=== PATIENT | female | born 1975 | race Caucasian/White ===

== ENCOUNTER 2016-05-10 18:33 | Emergency (ER) | payer BC ==
[~2016-05-10] VITALS: Ht 165.1 cm; Wt 81.0 kg
[2016-05-10 19:16] VITALS: TEMP 36.8; Ht 165.1 cm; Wt 81.0 kg
[2016-05-10 19:48] VITALS: O2SAT 98
[2016-05-10 20:05] LABS: BASO % 0.3 %; BASO ABS # 0.03 K/uL (0-0.2); COMPLETE YES; EOS % 2.1 %; HEMATOCRIT 39.7 % (37-47); IG% 0.1 %; LYMPH % 31.4 %; LYMPH ABS # 2.81 K/uL (1.2-3.4); MEAN CELL VOLUME 90.8 fL (80-100); MEAN CORPUSCULAR HEMOGLOBIN 31.6 pg (25-34); MEAN CORPUSCULAR HGB CONC 34.8 g/dl (32-36); MEAN PLATELET VOLUME 9.5 fL (7.4-10.4); MONO % 5.9 %; NEUT % 60.2 %; PLATELET COUNT 243 K/uL (130-400); RED BLOOD COUNT 4.37 M/uL (4.2-5.4); WHITE BLOOD COUNT 8.94 K/uL (4.8-10.8)
[2016-05-10 20:16] LABS: PARTIAL THROMBOPLASTIN RATIO 1.2; PROTHROMBIN TIME (PATIENT) 10.2 SECONDS (9.0-12.0)
--- NOTE | 2016-05-10 20:18 | DIAGNOSTIC IMAGING REPORT ---
CHEST 2 VIEWS ROUTINE CLINICAL HISTORY: Shortness of breath. Palpitations. COMPARISON STUDY: No previous studies for comparison. FINDINGS: Lung volumes are normal. There is no pneumothorax or pleural effusion. Pulmonary vascularity is normal. Cardiac size is normal. Mediastinal contours are normal. No consolidation is identified. IMPRESSION: No acute cardiopulmonary findings. Electronically signed by: Claudio Tony M.D. 05/10/2016 8:17 PM Dictated Date/Time: 05/10/2016 8:17 PM
[2016-05-10 20:25] LABS: BUN/CREATININE RATIO 12.1 (10-20); CALCIUM 9.1 mg/dl (8.5-10.1); CREATININE 0.75 mg/dl (0.60-1.20); MAGNESIUM 2.4 mg/dl (1.8-2.4); POTASSIUM 3.4 mmol/L (3.5-5.1)
[2016-05-10 20:34] LABS: THYROID STIMULATING HORMONE 3.12 uIu/ml (0.300-4.500)
[2016-05-10] MEDS ORDERED: POTASSIUM CHLORIDE 10 MEQ TABCR PO STA (20:47)
[2016-05-10 21:03] VITALS: BP 118/77; PULSE 90; O2SAT 98
--- NOTE | 2016-05-11 00:10 | EMERGENCY ROOM VISIT NOTE ---
History Report prepared by Honorioibсветлана: Jasmina Murphy Under the Supervision of: Dr. Nirav Encarnacion M.D. First contact with patient: 19:27 Chief Complaint: CARDIAC ASSESSMENT Stated Complaint: HEART PALPITATIONS History of Present Illness The patient is a 40 year old female who presents to the Emergency Room with complaints of constant palpations occurring 2 hours prior to arrival. The patient states that she was driving home from work when the palpations began. She notes she has had some chest heaviness, but denies any chest pain. The patient does drink about 60oz of caffeine everyday typically in the form of soda. She denies fevers, vomiting, diarrhea or abdominal pain. The patient also denies a family history of heart disease, control use, recent long trips, or any known medical problems. She is a non smoker. 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 A total of 10 systems reviewed and were otherwise negative. Past Medical & Surgical Surgical Problems: (1) S/P tubal ligation Family History Patient reports no known family medical history. Social History Smoking Status: Never Smoker Smokeless Tobacco Use: No Alcohol Use: occasionally Housing Status: lives with family Occupation Status: employed Allergies Coded Allergies: No Known Allergies (Verified , 03/22/02) Physical Exam Vital Signs Date Time Temp Pulse Resp B/P Pulse Ox O2 Delivery O2 Flow Rate FiO2 05/10/16 21:03 90 16 118/77 98 Room Air 05/10/16 19:48 98 Room Air 05/10/16 19:47 73 05/10/16 19:20 97 Room Air 05/10/16 19:16 36.8 53 18 123/71 98 Room Air Physical Exam Constitutional: Vital signs reviewed. Eyes: Pupils are equal round reactive to light. Conjunctiva are noninjected. ENT: Pharynx is clear without erythema or exudate. Mucous membranes are moist. Neck supple without meningeal signs. Respiratory: Clear to auscultation bilaterally. Breath sounds are equal bilaterally. Cardiovascular: Extrasystole after every heartbeat. No murmurs, rubs or gallops. GI: Soft, nondistended and nontender. Bowel sounds are present. Musculoskeletal: No peripheral edema. No lower extremity tenderness. Integumentary: No cyanosis. Neurological: The patient is awake and alert. No focal deficits. Psychiatric: Normal affect. Medical Decision & Procedures ER Provider Diagnostic Interpretation: X-ray results as stated below per interpretation by me and the radiologist: CHEST 2 VIEWS ROUTINE CLINICAL HISTORY: Shortness of breath. Palpitations. COMPARISON STUDY: No previous studies for comparison. FINDINGS: Lung volumes are normal. There is no pneumothorax or pleural effusion. Pulmonary vascularity is normal. Cardiac size is normal. Mediastinal contours are normal. No consolidation is identified. IMPRESSION: No acute cardiopulmonary findings. Electronically signed by: Claudio Tony M.D. 05/10/2016 8:17 PM Dictated Date/Time: 05/10/2016 8:17 PM Laboratory Results 05/10/16 19:55 Red Blood Count 4.37, Mean Corpuscular Volume 90.8, Mean Corpuscular Hemoglobin 31.6, Mean Corpuscular Hemoglobin Concent 34.8, Mean Platelet Volume 9.5, Neutrophils (%) (Auto) 60.2, Lymphocytes (%) (Auto) 31.4, Monocytes (%) (Auto) 5.9, Eosinophils (%) (Auto) 2.1, Basophils (%) (Auto) 0.3, Neutrophils # (Auto) 5.37, Lymphocytes # (Auto) 2.81, Monocytes # (Auto) 0.53, Eosinophils # (Auto) 0.19, Basophils # (Auto) 0.03 05/10/16 19:55 Test 05/10/16 19:40 05/10/16 19:55 05/10/16 19:58 Urine Test NEG (NEG) White Blood Count 8.94 K/uL (4.8-10.8) Red Blood Count 4.37 M/uL (4.2-5.4) Hemoglobin 13.8 g/dL (12.0-16.0) Hematocrit 39.7 % (37-47) Mean Corpuscular Volume 90.8 fL (80-100) Mean Corpuscular Hemoglobin 31.6 pg (25-34) Mean Corpuscular Hemoglobin Concent 34.8 g/dl (32-36) Platelet Count 243 K/uL (130-400) Mean Platelet Volume 9.5 fL (7.4-10.4) Neutrophils (%) (Auto) 60.2 % Lymphocytes (%) (Auto) 31.4 % Monocytes (%) (Auto) 5.9 % Eosinophils (%) (Auto) 2.1 % Basophils (%) (Auto) 0.3 % Neutrophils # (Auto) 5.37 K/uL (1.4-6.5) Lymphocytes # (Auto) 2.81 K/uL (1.2-3.4) Monocytes # (Auto) 0.53 K/uL (0.11-0.59) Eosinophils # (Auto) 0.19 K/uL (0-0.5) Basophils # (Auto) 0.03 K/uL (0-0.2) RDW Standard Deviation 44.5 fL (36.4-46.3) RDW Coefficient of Variation 13.3 % (11.5-14.5) Immature Granulocyte % (Auto) 0.1 % Immature Granulocyte # (Auto) 0.01 K/uL (0.00-0.02) Prothrombin Time 10.2 SECONDS (9.0-12.0) Prothromb Time International Ratio 1.0 (0.9-1.1) Activated Partial Thromboplast Time 31.4 SECONDS (21.0-31.0) Partial Thromboplastin Ratio 1.2 Anion Gap 7.0 mmol/L (3-11) Est Creatinine Clear Calc Drug Dose 102.7 ml/min Estimated GFR () 113.9 Estimated GFR (Non- 98.3 BUN/Creatinine Ratio 12.1 (10-20) Calcium Level 9.1 mg/dl (8.5-10.1) Magnesium Level 2.4 mg/dl (1.8-2.4) Total Bilirubin 0.7 mg/dl (0.2-1) Direct Bilirubin 0.2 mg/dl (0-0.2) Aspartate Amino Transf (AST/SGOT) 9 U/L (15-37) Alanine Aminotransferase (ALT/SGPT) 22 U/L (12-78) Alkaline Phosphatase 50 U/L (45-117) Total Protein 8.1 gm/dl (6.4-8.2) Albumin 4.4 gm/dl (3.4-5.0) Thyroid Stimulating Hormone (TSH) 3.120 uIu/ml (0.300-4.500) Free Thyroxine 1.04 ng/dl (0.80-1.60) Bedside D-Dimer 167 ng/mlFEU (0-450) Bedside Troponin I 0.000 ng/ml (0-0.045) Laboratory results as reviewed by me. Medications Administered Medications (Trade) Dose Ordered Sig/Mayelin Route Start Time Stop Time Status Last Admin Dose Admin Potassium Chloride (Klor-Con M10) 40 meq NOW STAT PO 05/10/16 20:47 05/10/16 20:48 DC 05/10/16 20:52 40 MEQ ECG Indication: palpitations Rate (beats per minute): 60 Rhythm: sinus rhythm Findings: PVC (frequent in pattern bigeminy), no acute ischemic change Change: 2nd ECG: Normal sinus rhythm, rate of 77, no ectopy, no acute ischemic changes. ED Course 1927: The patient was evaluated in room C9. A complete history and physical exam was performed. 2046: Klor-Con M10 40 meq PO. 2052: Patient states she is no longer experiencing palpations. She has no symptoms at this time. Normal sinus rhythm on the monitor. A repeat ECG is being done. 2058: I spoke with Dr. Resendiz - Cardiology about the patient. He will follow up with her in the clinic. He does not feel there is a need for hospitalization or repeat cardiac enzymes. 2105: I discussed test results with the patient. She will follow up with Dr. Resendiz in the clinic. 2108: Upon reevaluation, the patient appeared to have improvement of her symptoms. I discussed tonight's findings with her. She verbalized agreement of the treatment plan. She was discharged home. Medical Decision This is a 40-year-old female presents with palpitations and chest discomfort. Differential diagnosis includes dysrhythmia, metabolic derangement, electrolytes abnormality, acute coronary syndrome, pulmonary embolism. I did perform a limited focused review of portions of the patient's old chart on the electronic medical record. The patient has had no recent pertinent visits to this hospital. I did evaluate the patient as noted above. She is presenting with palpitations today that started while she was driving. She also developed some mild chest heaviness with these palpitations. She has no known risk factors for cardiac disease or pulmonary embolism. IV access was established. The patient was placed on a continuous cardiac cath lab radiology technologist. I did order and personally review the patient's 12-lead EKG and chest x-ray as described above. She does have bigeminy on her twelve-lead EKG. I did order and review the patient's blood work as noted in the electronic medical record. Her potassium is slightly low and she was given oral potassium. I did reassess the patient. Her palpitations have resolved. She has no chest discomfort or shortness breath. I did order a repeat twelve-lead EKG which showed normal sinus rhythm without any acute ischemic changes. I did discuss the case with Dr. Resendiz of cardiology. He stated that he would follow with the patient as an outpatient for further evaluation and likely echocardiogram. He does not feel the patient needed a hospitalized or have a second set of cardiac enzymes. I did discuss this with the patient who is happy with this plan. She was discharged in good condition and given return instructions as outlined below. Consults Time Called: 2056 Consulting Physician: Dr. Astrid Milner Cardiology Returned Call: [address] Astrid Shelby about the patient. He will follow up with her in the clinic. He does not feel there is a need for hospitalization or repeat cardiac enzymes. Impression Primary Impression: Bigeminy Additional Impressions: Hypokalemia Acute chest pain Scribe Attestation The scribe's documentation has been prepared under my direct and personally reviewed by me in its entirety. I confirm that the note above accurately reflects all work, treatment, procedures, and medical decision making performed by me. Departure Information Dispostion Home / Self-Care Referrals No Doctor, Assigned (PCP) Forms IMPORTANT VISIT INFORMATION Patient Instructions My [facility], Premature Ventricular Contractions Additional Instructions You have been examined and treated today on an emergency basis only. This is not a substitute for, or an effort to provide, complete comprehensive medical care. It is impossible to recognize and treat all injuries or illnesses in a single emergency department visit. It is therefore important that you follow up closely with your physician and Dr. Resendiz of cardiology. Call as soon as possible for an appointment. Return for worsening symptoms or if you develop profuse sweating, lightheadedness, chest pain or any other concerning symptoms. Avoid caffeine and other stimulants. Edgar Resendiz [phone] Problem Qualifiers
[2016-05-11] MEDS ORDERED: FLUT0.15 NAE (02:06)
== END 2016-05-10 21:16 | disposition home or self-care (01) ==
LOC: C.EDB 18:35 → C.EDC 21:16
DX: R00.8 Other abnormalities of heart beat (principal); E87.6 Hypokalemia; R07.9 Chest pain, unspecified

== ENCOUNTER 2016-05-11 01:37 | Emergency (ER) | payer BC ==
[~2016-05-11] VITALS: Ht 165.1 cm; Wt 81.6 kg
[2016-05-11 01:41] VITALS: TEMP 37.1; Ht 165.1 cm; Wt 81.6 kg
[2016-05-11] MEDS ORDERED: FLUT0.15 NAE (02:06)
[2016-05-11] MEDS ORDERED: SODIUM CHLORIDE 0.9% 1000ML 1,000 ML IV ONE (03:00)
[2016-05-11 03:23] LABS: BASO % 0.2 %; BASO ABS # 0.02 K/uL (0-0.2); COMPLETE YES; EOS % 1.6 %; IG% 0.1 %; LYMPH % 18.9 %; LYMPH ABS # 1.79 K/uL (1.2-3.4); MEAN CELL VOLUME 90.9 fL (80-100); MEAN CORPUSCULAR HEMOGLOBIN 32.4 pg (25-34); MEAN CORPUSCULAR HGB CONC 35.7 g/dl (32-36); MEAN PLATELET VOLUME 9.4 fL (7.4-10.4); MONO % 5.5 %; NEUT % 73.7 %; PLATELET COUNT 235 K/uL (130-400); RED BLOOD COUNT 4.07 M/uL (4.2-5.4); WHITE BLOOD COUNT 9.49 K/uL (4.8-10.8)
[2016-05-11 03:42] LABS: ALT/SGPT 20 U/L (12-78); AST/SGOT 10 U/L (15-37); BLOOD UREA NITROGEN 9 mg/dl (7-18); BUN/CREATININE RATIO 12.5 (10-20); CARBON DIOXIDE 25 mmol/L (21-32); CHLORIDE 110 mmol/L (98-107); CREATININE 0.72 mg/dl (0.60-1.20); GLUCOSE 112 mg/dl (70-99); MAGNESIUM 2.4 mg/dl (1.8-2.4); POTASSIUM 3.9 mmol/L (3.5-5.1); SODIUM 144 mmol/L (136-145)
[2016-05-11 03:47] LABS: ALB/GLOB RATIO 1.1 (0.9-2); ALKALINE PHOSPHATASE 52 U/L (45-117)
[2016-05-11 04:36] LABS: LYME DISEASE AB IGG NEG (NEG); LYME DISEASE AB IGM NEG (NEG)
[2016-05-11 05:07] LABS: URINE APPEARANCE CLEAR (CLEAR); URINE BILIRUBIN NEG (NEG); URINE COLOR YELLOW; URINE NITRITE NEG (NEG); URINE PH 7.5 (4.5-7.5); URINE SPECIFIC GRAVITY 1.008 (1.000-1.030); UROBILINOGEN NEG (NEG); ZZUR CULT IF INDIC CLEAN CATCH NO
[2016-05-11 05:09] LABS: MANUAL MICROSCOPIC REQUIRED? NO; REVIEW REQ? NO
[2016-05-11 05:25] LABS: BENZODIAZEPINE, URINE NEG (NEG); COCAINE,URINE NEG (NEG); PHENCYCLIDINE, URINE NEG (NEG)
[2016-05-11 06:42] VITALS: BP 121/75; PULSE 83; O2SAT 99
--- NOTE | 2016-05-11 06:48 | EMERGENCY ROOM VISIT NOTE ---
History First contact with patient: 02:26 Chief Complaint: CARDIAC ASSESSMENT Stated Complaint: CARDIAC ASSESSMENT Nursing Triage Summary: Pt was seen earlier for cardiac assessment and was discharged with PVCs with occasional Bigeminy. Pt reports waking up feeling hot and hands were numb. Pt reports sharp stabbing periodically. Denies any cardiac history. History of Present Illness The patient is a 40 year old female who presents to the Emergency Room for evaluation of palpitations. The patient was seen in this facility a few hours ago for similar complaints. At her last visit she had blood work that was fairly unremarkable. She did have an episode of PVCs with bigeminy. At her last visit the case was discussed with cardiology, who recommended outpatient follow-up. The patient states that she was feeling well at the time of her discharge, went home, and was able to fall asleep. She states that she woke up with a racing heart and feeling like her hands and lips were numb. The patient states that she had some chest discomfort that was generalized over both the left and right side of her chest. She did not have significant shortness of breath. Because of her symptoms she did call 911. By the time the ambulance arrived, roughly 10 minutes later, her symptoms had completely resolved. She is currently asymptomatic here in the ER. The patient states that her is currently admitted to this facility for an unrelated process. She is only one at home right now, and this is an increased stressor for her. The patient does not have other complaints at this time. She rates her current discomfort a 0/10. Review of Systems More than 10 systems were reviewed and otherwise negative with the exception of history of present illness. Past Medical/Surgical History Surgical Problems: (1) S/P tubal ligation Family History Patient reports no known family medical history. Social History Smoking Status: Never Smoker Alcohol Use: occasionally Housing Status: lives with family Occupation Status: employed Current/Historical Medications Scheduled PRN Fluticasone Propionate (Nasal) (Flonase Allergy Relief), 1 SPRAY GWEN DAILY PRN for ALLERGY SX Allergies Coded Allergies: No Known Allergies (Verified , 05/11/16) Physical Exam Vital Signs Date Time Temp Pulse Resp B/P Pulse Ox O2 Delivery O2 Flow Rate FiO2 05/11/16 05:27 91 05/11/16 04:55 73 18 119/68 94 Room Air 05/11/16 03:35 83 18 116/64 97 Room Air 05/11/16 01:47 87 05/11/16 01:41 Room Air 05/11/16 01:41 37.1 89 15 128/64 98 Room Air 05/11/16 01:41 Room Air Physical Exam VITALS: Vitals are noted on the nurse's note and reviewed by myself. Vital signs stable. GENERAL: Well-developed, well-nourished, white female, who is in no acute distress and resting comfortably. Patient is cooperative with the examination. HEAD: Normocephalic atraumatic. EARS: External ear normal. External auditory canals clear, tympanic membranes pearly menendez without erythema or effusion bilaterally. EYES: Pupils equal round and reactive to light and accommodation. Conjunctivae without injection, sclerae without icterus. Extraocular movements intact. NOSE: Patent, turbinates without inflammation or discharge. MOUTH: Mucous membranes moist. Tonsils are not enlarged. Pharynx without erythema, blood, or exudate. Uvula midline. Airway patent. NECK: Supple without nuchal rigidity. No lymphadenopathy. No thyromegaly. Cervical spine is nontender. HEART: Regular rate and rhythm without murmurs gallops or rubs. LUNGS: Clear to auscultation bilaterally without wheezes, rales or rhonchi. No retractions or accessory muscle use. ABDOMEN: Positive normal bowel sounds x 4. Soft, nontender, without masses or organomegaly. No guarding or rebound tenderness. MUSCULOSKELETAL: No muscle atrophy, erythema, or edema noted. Full range of motion without joint tenderness in all extremities. No tenderness to palpation. Normal gait. Strength 5/5 throughout. NEURO: Patient was alert and oriented to person place and time. CN II through XII grossly intact. Deep tendon reflexes 2+ throughout. No focal neurological deficits SKIN: The skin was without rashes, erythema, edema, or bruising. Capillary reflex less than 2 seconds. Medical Decision & Procedures Laboratory Results 05/11/16 03:10 Red Blood Count 4.07, Mean Corpuscular Volume 90.9, Mean Corpuscular Hemoglobin 32.4, Mean Corpuscular Hemoglobin Concent 35.7, Mean Platelet Volume 9.4, Neutrophils (%) (Auto) 73.7, Lymphocytes (%) (Auto) 18.9, Monocytes (%) (Auto) 5.5, Eosinophils (%) (Auto) 1.6, Basophils (%) (Auto) 0.2, Neutrophils # (Auto) 7.00, Lymphocytes # (Auto) 1.79, Monocytes # (Auto) 0.52, Eosinophils # (Auto) 0.15, Basophils # (Auto) 0.02 05/11/16 03:10 Test 05/11/16 03:10 05/11/16 03:16 05/11/16 04:45 White Blood Count 9.49 K/uL (4.8-10.8) Red Blood Count 4.07 M/uL (4.2-5.4) Hemoglobin 13.2 g/dL (12.0-16.0) Hematocrit 37.0 % (37-47) Mean Corpuscular Volume 90.9 fL (80-100) Mean Corpuscular Hemoglobin 32.4 pg (25-34) Mean Corpuscular Hemoglobin Concent 35.7 g/dl (32-36) Platelet Count 235 K/uL (130-400) Mean Platelet Volume 9.4 fL (7.4-10.4) Neutrophils (%) (Auto) 73.7 % Lymphocytes (%) (Auto) 18.9 % Monocytes (%) (Auto) 5.5 % Eosinophils (%) (Auto) 1.6 % Basophils (%) (Auto) 0.2 % Neutrophils # (Auto) 7.00 K/uL (1.4-6.5) Lymphocytes # (Auto) 1.79 K/uL (1.2-3.4) Monocytes # (Auto) 0.52 K/uL (0.11-0.59) Eosinophils # (Auto) 0.15 K/uL (0-0.5) Basophils # (Auto) 0.02 K/uL (0-0.2) RDW Standard Deviation 44.1 fL (36.4-46.3) RDW Coefficient of Variation 13.3 % (11.5-14.5) Immature Granulocyte % (Auto) 0.1 % Immature Granulocyte # (Auto) 0.01 K/uL (0.00-0.02) Anion Gap 9.0 mmol/L (3-11) Est Creatinine Clear Calc Drug Dose 107.4 ml/min Estimated GFR () 119.7 Estimated GFR (Non- 103.3 BUN/Creatinine Ratio 12.5 (10-20) Calcium Level 9.0 mg/dl (8.5-10.1) Magnesium Level 2.4 mg/dl (1.8-2.4) Total Bilirubin 0.6 mg/dl (0.2-1) Aspartate Amino Transf (AST/SGOT) 10 U/L (15-37) Alanine Aminotransferase (ALT/SGPT) 20 U/L (12-78) Alkaline Phosphatase 52 U/L (45-117) Total Creatine Kinase 57 U/L (26-192) Creatine Kinase MB < 0.5 ng/ml (0.5-3.6) Creatine Kinase MB Ratio (0-3.0) Total Protein 7.7 gm/dl (6.4-8.2) Albumin 4.1 gm/dl (3.4-5.0) Globulin 3.6 gm/dl (2.5-4.0) Albumin/Globulin Ratio 1.1 (0.9-2) Lipase 140 U/L (73-393) Lyme Disease IgG Antibody NEG (NEG) Lyme Disease IgM Antibody NEG (NEG) Bedside D-Dimer 207 ng/mlFEU (0-450) Bedside Troponin I 0.000 ng/ml (0-0.045) Urine Color YELLOW Urine Appearance CLEAR (CLEAR) Urine pH 7.5 (4.5-7.5) Urine Specific Corbett 1.008 (1.000-1.030) Urine Protein NEG (NEG) Urine Glucose (UA) NEG (NEG) Urine Ketones NEG (NEG) Urine Occult Blood NEG (NEG) Urine Nitrite NEG (NEG) Urine Bilirubin NEG (NEG) Urine Urobilinogen NEG (NEG) Urine Leukocyte Esterase NEG (NEG) Urine Opiates Screen NEG (NEG) Urine Methadone, Qualitative NEG (NEG) Urine Barbiturates NEG (NEG) Urine Phencyclidine (PCP) Level NEG (NEG) Ur Amphetamine/Methamphetamine NEG (NEG) MDMA (Ecstasy) Screen NEG (NEG) Urine Benzodiazepines Screen NEG (NEG) Urine Cocaine Metabolite NEG (NEG) Urine Marijuana (THC) NEG (NEG) Medications Administered Medications (Trade) Dose Ordered Sig/Mayelin Route Start Time Stop Time Status Last Admin Dose Admin Sodium Chloride (Nss 1000ml) 1,000 ml @ 999 mls/hr Q1H1M ONCE IV 05/11/16 03:00 05/11/16 04:00 DC 05/11/16 03:00 999 MLS/HR ED Course Physical exam and history were performed. Nursing notes and EMR were reviewed. Patient appears to have had an episode of palpitations that brought her back to the emergency department this evening. I was able to review the prehospital EKG which was normal sinus rhythm. EKG was performed here in the ER, and was also normal sinus rhythm without evidence of ischemia or ectopy. IV access was established and labs were obtained. Patient was hydrated with normal saline. She was placed on operator engineer. The patient blood work is as above and was reviewed. She does not have significantly elevated white blood cell count, gross anemia, bandemia, or significant electrolyte imbalance. Lyme is negative. Troponin 1 is negative. The patient remained on a operator engineer for greater than 5 hours without dysrhythmia. I discussed options of care with the patient. This is her second visit in about 12 hours to the ER with 2 negative workups. We consulted cardiology a few hours ago, and the patient does not have significant change in her status from that time. She did not have any repeat episodes of bigeminy. The patient will need to follow with cardiology on a short-term interval because of her symptoms. I did engage case management here in the ER to assist with these arrangements. Case management was able to obtain consents, and will contact cardiology to solidify an appointment on the patient's behalf. The patient was very pleased with this. Overall she does appear stable for discharge home. The patient was invited back to the ER anytime with any new, worsening, or concerning symptoms. She was discharged home under the care of a friend who is acting as the diesel pile driver operator today. The chart was completed utilizing [employer] Speech Voice Recognition Software. Grammatical errors, random word insertions, pronoun errors, and incomplete sentences are an occasional consequence of this system due to software limitations, ambient noise, and hardware issues. Any formal questions or concerns about the content, text, or information contained within the body of this dictation should be directly addressed to the provider for clarification. . Medical Decision Differential diagnosis includes, but is not limited to: Myocardial infarction, dysrhythmia, pericarditis, pneumothorax, aortic aneurysm/dissection, DVT/PE, anxiety, GERD, PUD, electrolyte imbalance, thyroid disorder, pneumonia, bronchitis, pancreatitis, and others Impression Primary Impression: Heart palpitations Departure Information Dispostion Home / Self-Care Condition GOOD Referrals Edgar Resendiz MD Forms IMPORTANT VISIT INFORMATION Patient Instructions My [facility] Additional Instructions You were seen and evaluated today on an emergency basis only. This is not a substitute for, or an effort to provide, complete comprehensive medical care. It is not possible to recognize and treat all injuries or illnesses in a single emergency department visit. For this reason it is recommended that you followup with Cardiology, Dr Resendiz' s office, for ongoing care and evaluation. Case management will call you later this morning with your appointment date and time. Drink plenty of fluids and remain well hydrated. You are welcome to return to the emergency department anytime with new, worsening, or concerning symptoms.
== END 2016-05-11 06:43 | disposition home or self-care (01) ==
LOC: EDBD 01:37 → C.EDC 01:38 → C.EDB 06:43
DX: R00.2 Palpitations (principal)